=== PATIENT | female | born 1990 | race Caucasian/White ===

== ENCOUNTER 2017-12-08 03:38 | Emergency (ER) | payer SELFPAY ==
[~2017-12-08] VITALS: Ht 165.1 cm; Wt 61.2 kg
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
[2017-12-08] MEDS ORDERED: LORAZEPAM INJ 2 MG/ML VIAL ONE (03:47)
[2017-12-08] MEDS ORDERED: LORAZEPAM INJ 2 MG/ML VIAL IM ONE (04:00)
--- NOTE | 2017-12-08 04:08 | NUR ---
PT STANDING UP RESTLESS WITH FAMILY AT BEDSIDE TRYING TO CALM HER DOWN
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
--- NOTE | 2017-12-08 05:02 | NUR ---
LAB AT BEDSIDE FOR BLOOD DRAW
--- NOTE | 2017-12-08 05:22 | NUR ---
URINE PICKED UP BY LAB
[2017-12-08 05:25] LABS: BASOPHILS % (AUTO) 0.3 % (0.0-2.0); EOSINOPHILS % (AUTO) 0.6 % (0.0-6.0); HEMATOCRIT 43 % (33-45); HEMOGLOBIN 14.5 g/dL (11.5-14.8); LYMPHOCYTES # (AUTO) 1.9 /CMM (0.8-4.8); LYMPHOCYTES % (AUTO) 24.7 % (20.0-44.0); MEAN CORPUSCULAR HEMOGLOBIN 31 PG (26.0-33.0); MEAN CORPUSCULAR HGB CONC 34 g/dl (31.0-36.0); MEAN CORPUSCULAR VOLUME 90 fL (82-100); MONOCYTES # (AUTO) 0.7 /CMM (0.1-1.30); MONOCYTES % (AUTO) 9.4 % (2.0-12.0); PLATELET COUNT (AUTO) 302 /CMM (150-450); RDW COEFFICIENT OF VARIATION 12.5 (11.5-15.0); RED BLOOD CELL COUNT(AUTO) 4.71 MIL/uL (4.0-5.2); WHITE BLOOD COUNT (AUTO) 7.7 K/uL (4.3-11.0)
[2017-12-08 05:28] LABS: APPEARANCE,URINE CLOUDY (CLEAR); BILIRUBIN,URINE 1+ (NEGATIVE); BLOOD, URINE NEGATIVE Ery/uL (NEGATIVE); COLOR,URINE DARK YELLOW (YELLOW); KETONES,URINE 2+ (NEGATIVE); LEUKOCYTE ESTERASE ,URINE NEGATIVE (NEGATIVE); NITRITE, URINE NEGATIVE (NEGATIVE); PH,URINE 6.5 (5.0-8.0); PROTEIN,URINE TRACE mg/dl (NEGATIVE); UGLUCOSE NEGATIVE (NEGATIVE); UROBILINOGEN,URINE 0.2 EU/dL (0.2)
[2017-12-08 05:35] LABS: CARBON DIOXIDE 23 mmol/L (21-32); CHLORIDE 103 mmol/L (98-107); CREATININE 0.7 mg/dL (0.6-1.3); GLUCOSE 92 mg/dL (74-106); POTASSIUM 4.5 mmol/L (3.5-5.1); SODIUM SERUM 139 mmol/L (136-145); UREA NITROGEN, BLOOD 12 mg/dL (7-18)
[2017-12-08 05:36] LABS: BACTERIA,URINE Moderate /HPF (None Seen); MUCUS,URINE Many /LPF (None Seen); RBC,URINE 0-2 /HPF (0-2); SQUAMOUS EPITHELIAL CELL,UR Many /HPF (None Seen)
[2017-12-08 05:41] LABS: ACETAMINOPHEN 0 ug/ml (10-30); ALANINE AMINOTRANSFERASE 10 U/L (12-78); ALBUMIN 4.7 g/dL (3.4-5.0); ALCOHOL, BLOOD < 3 mg/dL (0-0); ALKALINE PHOSPHATASE 52 U/L (46-116); ASPARTATE AMINOTRANSFERASE 15 U/L (15-37); BILIRUBIN,DIRECT 0.2 mg/dL (0.0-0.2); BILIRUBIN,TOTAL 1.3 mg/dL (0.2-1.0); SALICYLATE 0.9 mg/dL (2.8-20.0); TOTAL PROTEIN, SERUM 8.5 g/dL (6.4-8.2)
--- NOTE | 2017-12-08 06:02 | NUR ---
TO BE OBSERVED UNTIL 8AM UNTIL PT CAN BE SEEN FOR PSYCH EVAL
--- NOTE | 2017-12-08 06:34 | NUR ---
PT IS SLEEPING COMFORTABLY WITH FAMILY AT BEDSIDE
--- NOTE | 2017-12-08 06:48 | NUR ---
ART AT BEDSIDE FOR EVAL.
--- NOTE | 2017-12-08 06:58 | NUR ---
ER MD BOX AT BEDSIDE FOR EVAL
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
[2017-12-08 11:00] VITALS: BP 122/89
--- NOTE | 2017-12-08 11:01 | NUR ---
Patient discharged to home in stable condition. Written and verbal after care instructions given. Patient verbalizes understanding of instruction.
== END 2017-12-08 11:02 | disposition home or self-care (01) ==
LOC: ER 03:41
DX: F41.9 Anxiety disorder, unspecified (principal); F15.10 Other stimulant abuse, uncomplicated; F12.10 Cannabis abuse, uncomplicated
CPT/HCPCS: 36415; 80048-TC; 80076-TC; 80305; 81000-TC; 85025-TC; 87086-TC; A4606; G0480; J2060; Z7610